=== PATIENT | female | born 1980 | race Hispanic/Latino ===

== ENCOUNTER 2021-07-14 08:52 | Day surgery (SDC) | payer BC ==
[2021-07-14] MEDS ORDERED: Acetaminophen 500 MG TAB PO SCH (09:15)
[2021-07-14] MEDS ORDERED: diphenhydrAMINE 25 MG CAP PO SCH (09:15)
[2021-07-14] MEDS ORDERED: Sodium Chloride 0.9% 20 ML ONE (09:36)
[2021-07-14 14:42] VITALS: BP 112/64; TEMP 98.1
== END 2021-07-14 14:42 | disposition home or self-care (01) ==
LOC: ONC/OP 08:52
PROVIDERS: ATTEND Internal Medicine Hematology & Oncology
PROC: 30233N1 Transfusion of Nonautologous Red Blood Cells into Peripheral Vein, Percutaneous Approach (ICD-10-PCS; principal; 2021-07-14)
DX: D64.9 Anemia, unspecified (principal); D69.6 Thrombocytopenia, unspecified
CPT/HCPCS: 36430; 86850; 86900; 86901; P9016; Q0163

== ENCOUNTER 2021-07-16 04:55 | Emergency (ER) | payer BC ==
[2021-07-16] MEDS ORDERED: hydrOXYzine 25 MG TAB ONE (05:22)
== END 2021-07-16 06:10 | disposition home or self-care (01) ==
LOC: ERS 04:55
DX: F41.1 Generalized anxiety disorder (principal); D50.9 Iron deficiency anemia, unspecified; D64.9 Anemia, unspecified
CPT/HCPCS: 99283